=== PATIENT | female | born 1970 | race Caucasian/White ===

== ENCOUNTER → 2016-04-07 | Outpatient (CLI) | payer MEDICAID ==
[~2016-04-07] MED LIST: ALBUTEROL-200 PUFFS/ IH; ALBUTEROL2 PUFFS/17 IN; ASPIRIN 81MG TA81 MG PO; ATIVAN1 MG PO; AZITHROMYCIN250 MG PO; CEPHALEXIN MON500 MG PO; CLARITIN 10MG T10 MG PO; FLEXERIL10 MG PO; IBU-8800 MG PO; IBUPROFEN400 MG PO; LIPITOR80 M1 PO; LIPITOR80 MG PO; LISINOPRIL2.5 MG PO; LOPRESSOR 25MG.25 MG FT; LORTAB 5/500 501 TAB PO; LORTAB 500 MG-11 TAB PO; MEDROL 4MG. DOSE4 MG PO; METOPROLOL25 MG PO; PLAVIX75 MG PO; ROBAFEN AC 10480 ML PO; TESSALON PERLE200 MG PO; Tramadol HCl50 MG PO; ULTRACET 325 MG1 TAB PO; VOLTAREN75 MG PO
--- NOTE | 2016-04-07 14:33 | RADIOLOGY REPORT PS360 ---
CHEST(2 VIEWS-NOT PORTABLE) HISTORY: LUNG NODULE ORDERING PHYSICIAN: Tyron Luis PATIENT AGE: 45 years COMPARISON: 03/26/2012 FINDINGS: The cardiomediastinal silhouette and pulmonary vascularity are within normal limits. There is coarsening of the bronchovascular markings in the lingula and right lung base consistent with peribronchial inflammatory change/pneumonitis. Upper lobes are clear. IMPRESSION: Coarsening of the bronchovascular markings consistent with peribronchial inflammatory change/pneumonitis in the lower lung zones
== END ==
LOC: RAD 13:39
DX: R91.1 Solitary pulmonary nodule (principal)

== ENCOUNTER → 2016-06-14 | Outpatient (CLI) | payer MEDICAID ==
--- NOTE | 2016-06-14 14:09 | RADIOLOGY REPORT PS360 ---
[id number] [id number] HISTORY: LT SHOULDER PAIN CHRONIC ORDERING PHYSICIAN: Luis Grigsby MD PATIENT AGE: 45 years TECHNIQUE: Standard images are performed along with a Grashey view COMPARISON: None FINDINGS: No fracture or dislocation. No lytic or blastic change. There is normal mineralization. Minimal spurring is present along the inferior aspect of the acromioclavicular joint. Glenohumeral joint has an unremarkable appearance. IMPRESSION: Minimal osteoarthritic change acromioclavicular joint otherwise negative
== END ==
LOC: RAD 12:47
DX: M25.512 Pain in left shoulder (principal)